=== PATIENT | male | born 1950 | race Caucasian/White ===

== ENCOUNTER 2021-04-28 07:59 | Observation (INO) | payer MEDICARE, BC ==
[~2021-04-28] VITALS: Ht 188 cm; Wt 119.7 kg
[~2021-04-28 07:59] MED LIST: ASPI-845 PO; CARV-49 PO; ENAL10TA19 PO; MULT-342 PO
[2021-04-28 09:07] LABS: BASOPHILS % (AUTO) 1.2 % (0-1); EOSINOPHILS # (AUTO) 0.2 X10'3 (0-0.9); EOSINOPHILS % (AUTO) 6.1 % (0-6); HEMOGLOBIN 9.2 g/dl (14.0-17.9); LYMPHOCYTES # (AUTO) 0.8 X10'3 (1.1-4.8); LYMPHOCYTES % (AUTO) 27.7 % (21-51); MEAN CORPUSCULAR HEMOGLOBIN 32.7 PG (27.0-31.0); MEAN CORPUSCULAR HGB CONC 34.2 g/dL (33.0-36.5); MEAN CORPUSCULAR VOLUME 95.6 FL (78-98); MEAN PLATELET VOLUME 8.9 FL (7.4-10.4); MONOCYTES # (AUTO) 0.3 X10'3 (0-0.9); MONOCYTES % (AUTO) 9.7 % (2-12); NEUTROPHILS # (AUTO) 1.6 X10'3 (1.8-7.7); NEUTROPHILS % (AUTO) 55.3 % (42-75); PLATELET COUNT 109 X10'3 (140-440); RED BLOOD COUNT 2.82 X10'6 (4.70-6.10); RED CELL DISTRIBUTION WIDTH 13.3 % (11.5-14.5); WHITE BLOOD COUNT 2.8 X10'3 (4.5-11.0)
[2021-04-28 09:20] LABS: ALANINE AMINOTRANSFERASE 31 U/L (12-78); ALBUMIN 3.5 G/DL (3.4-5.0); ALBUMIN/GLOBULIN RATIO 1.1 (1.1-1.5); ALKALINE PHOSPHATASE 51 IU/L (46-116); ANION GAP 11 (8-16); ASPARTATE AMINO TRANSFERASE 18 U/L (10-37); BILIRUBIN,TOTAL 0.8 MG/DL (0.1-1.0); BLOOD UREA NITROGEN 29 MG/DL (7-18); BUN/CREATININE RATIO 29.6 (5.4-32.0); CALCIUM 8.4 MG/DL (8.5-10.1); CHLORIDE 109 MMOL/L (99-107); CREATININE 0.98 MG/DL (0.60-1.10); GLUCOSE 101 MG/DL (70-104); POTASSIUM 3.5 MMOL/L (3.5-5.1); SODIUM 144 MMOL/L (135-145); TOTAL CARBON DIOXIDE 24.4 MMOL/L (24-32); TOTAL PROTEIN 6.8 G/DL (6.4-8.2); eGFR 75 ML/MIN
[2021-04-28 10:00] LABS: TOTAL CELLS COUNTED 100
[2021-04-28 10:01] LABS: PLATELET ESTIMATE DECREASED
[2021-04-28] MEDS ORDERED: ondansetron/PF 4mg/2ml inj IV PRN (12:50)
[2021-04-28] MEDS ORDERED: magnesium hydroxide 30ml (MOM) UD suspension PO PRN (12:50)
[2021-04-28] MEDS ORDERED: acetaminophen 325mg tablet PO PRN (12:50)
[2021-04-28] MEDS ORDERED: morphine 2 MG/ML inj. syringe IV PRN ×2 (12:50)
[2021-04-28] MEDS: normal saline 1000ml 1,000 ML IV SCH ×2 (12:50→23:18)
[2021-04-28] MEDS ORDERED: mag hydrox/Alum hydrox/simeth 30ml oral suspension PO PRN (12:50)
[2021-04-28] MEDS ORDERED: CARV6.253 PO (12:52)
[2021-04-28] MEDS ORDERED: ATOR20TA66 PO (12:52)
[2021-04-28] MEDS ORDERED: HYDR25TA4 PO (12:52)
[2021-04-28] MEDS ORDERED: ENAL20TA77 PO (12:52)
[2021-04-28] MEDS ORDERED: ASCO-10 PO (12:59)
[2021-04-28] MEDS ORDERED: ASPI-845 PO (12:59)
[2021-04-28] MEDS ORDERED: LACT1CAP75 PO (12:59)
[2021-04-28] MEDS ORDERED: MULT-342 PO (12:59)
--- NOTE | 2021-04-28 14:21 | NUR ---
PRACTICE OR STUDENT TEACHER AT BEDSIDE.
--- NOTE | 2021-04-28 15:59 | NUR ---
PATIENT PLACED ON HOSPITAL BED AT THIS TIME FOR COMFORT, AMBULATED TO BATHROOM WITH STANDBY ASSISTANCE, SAFELY RETURNED TO BED.
--- NOTE | 2021-04-28 19:30 | NUR ---
ANGIO GRAM AT 1400 04/[address] VERA
[2021-04-28 19:40] VITALS: BP 134/76
--- NOTE | 2021-04-28 20:00 | NUR ---
Patient in room PCU 3018. I have received report from TOBIN Colon and had the opportunity to ask questions and assume patient care.
[2021-04-28] MEDS: carvedilol 6.25mg tablet PO SCH (20:32)
[2021-04-28] MEDS: heparin, porcine 5000 units/ml vial SQ SCH (20:32)
[2021-04-28 22:00] VITALS: BP 127/75
[2021-04-29] VITALS (14 sets, daily range): BP systolic 107–150; BP diastolic 69–91
[2021-04-29] MEDS ORDERED: normal saline 1000ml 1,000 ML IV SCH ×2 (05:00→15:05)
--- NOTE | 2021-04-29 06:14 | NUR ---
Problems reprioritized. Patient report given, questions answered & plan of care reviewed with TOBIN Dickinson.
--- NOTE | 2021-04-29 06:29 | NUR ---
Patient in room PCU 3018. I have received report from TOBIN Dumont and had the opportunity to ask questions and assume patient care.
[2021-04-29 06:37] LABS: PARTIAL THROMBOPLASTIN TIME 27 SECONDS (22-32)
[2021-04-29 06:39] LABS: BASOPHILS % (AUTO) 1.1 % (0-1); EOSINOPHILS # (AUTO) 0.2 X10'3 (0-0.9); EOSINOPHILS % (AUTO) 5.2 % (0-6); HEMATOCRIT 37.4 % (42.0-52.0); HEMOGLOBIN 12.9 g/dl (14.0-17.9); LYMPHOCYTES # (AUTO) 1.1 X10'3 (1.1-4.8); LYMPHOCYTES % (AUTO) 26.1 % (21-51); MEAN CORPUSCULAR HEMOGLOBIN 32.5 PG (27.0-31.0); MEAN CORPUSCULAR HGB CONC 34.6 g/dL (33.0-36.5); MEAN PLATELET VOLUME 8.8 FL (7.4-10.4); MONOCYTES # (AUTO) 0.4 X10'3 (0-0.9); MONOCYTES % (AUTO) 10.4 % (2-12); NEUTROPHILS # (AUTO) 2.3 X10'3 (1.8-7.7); NEUTROPHILS % (AUTO) 57.2 % (42-75); PLATELET COUNT 152 X10'3 (140-440); RED BLOOD COUNT 3.98 X10'6 (4.70-6.10); RED CELL DISTRIBUTION WIDTH 13.5 % (11.5-14.5); WHITE BLOOD COUNT 4.1 X10'3 (4.5-11.0)
[2021-04-29 06:42] LABS: ALBUMIN 3.4 G/DL (3.4-5.0); ANION GAP 7 (8-16); BLOOD UREA NITROGEN 23 MG/DL (7-18); BUN/CREATININE RATIO 27.4 (5.4-32.0); CALCIUM 8.3 MG/DL (8.5-10.1); CHLORIDE 106 MMOL/L (99-107); CREATININE 0.84 MG/DL (0.60-1.10); GLUCOSE 88 MG/DL (70-104); POTASSIUM 4.2 MMOL/L (3.5-5.1); SODIUM 141 MMOL/L (135-145); eGFR 90 ML/MIN
[2021-04-29] MEDS: heparin, porcine 5000 units/ml vial SQ SCH (08:00)
[2021-04-29] MEDS: HYDROchlorothiazide 25mg tablet PO SCH (08:13)
[2021-04-29] MEDS: lactobacillus rhamnosus 10,000 MMU CELLS/CAPSULE PO SCH (08:13)
[2021-04-29] MEDS: carvedilol 6.25mg tablet PO SCH ×2 (08:13→20:53)
[2021-04-29] MEDS: atorvastatin 20mg tablet PO SCH (08:13)
[2021-04-29] MEDS: multivitamins, therapeutics tablet PO SCH (08:13)
[2021-04-29] MEDS: lisinopril 20mg tablet PO SCH (08:14)
[2021-04-29] MEDS: ascorbic acid 500mg tablet PO SCH (08:15)
[2021-04-29] MEDS: normal saline 1000ml 1,000 ML IV SCH ×2 (08:15→18:50)
[2021-04-29 12:28] LABS: EOSINOPHILS # (AUTO) 0.2 X10'3 (0-0.9); EOSINOPHILS % (AUTO) 4.1 % (0-6); HEMATOCRIT 40.9 % (42.0-52.0); HEMOGLOBIN 13.6 g/dl (14.0-17.9); LYMPHOCYTES # (AUTO) 0.9 X10'3 (1.1-4.8); MEAN CORPUSCULAR HEMOGLOBIN 31.9 PG (27.0-31.0); MEAN CORPUSCULAR HGB CONC 33.4 g/dL (33.0-36.5); MEAN CORPUSCULAR VOLUME 95.5 FL (78-98); MONOCYTES # (AUTO) 0.4 X10'3 (0-0.9); MONOCYTES % (AUTO) 9.4 % (2-12); NEUTROPHILS # (AUTO) 2.5 X10'3 (1.8-7.7); NEUTROPHILS % (AUTO) 63.5 % (42-75); PLATELET COUNT 164 X10'3 (140-440); RED BLOOD COUNT 4.28 X10'6 (4.70-6.10); RED CELL DISTRIBUTION WIDTH 13.8 % (11.5-14.5); WHITE BLOOD COUNT 3.9 X10'3 (4.5-11.0)
[2021-04-29] MEDS ORDERED: midazolam 1 mg/ML 2ml injection ONE (13:37)
[2021-04-29] MEDS ORDERED: LIDOcaine 1% (10mg/ml)w/preservative injection 20ml MDV ONE (13:38)
[2021-04-29] MEDS ORDERED: fentaNYL/PF 50MCG/1 ML 2ML syringe ONE (13:38)
[2021-04-29] MEDS ORDERED: iohexol 350MG/ML 100ml bottle IV ONE (13:38)
[2021-04-29] MEDS ORDERED: iohexol 350 MG/ML 50ML vial IV ONE ×2 (13:38→14:15)
[2021-04-29] MEDS ORDERED: proCHLORperazine 10 MG/2 ml inj IV PRN (15:05)
[2021-04-29] MEDS ORDERED: HYDROcodone/acetaminophen 5mg/325mg tablet PO PRN (15:05)
[2021-04-29] MEDS ORDERED: OXAZEpam 15mg capsule PO PRN (15:05)
[2021-04-29] MEDS ORDERED: ondansetron/PF 4mg/2ml inj IV PRN (15:05)
[2021-04-29] MEDS ORDERED: HYDROcodone/acetaminophen 10/325mg tab PO PRN (15:05)
--- NOTE | 2021-04-29 18:19 | NUR ---
Problems reprioritized. Patient report given, questions answered & plan of care reviewed with TOBIN Ignacio. Pt laying flat after angiogram, informed the nurse pt is to lay flat until 2044. Resting comfortably. Family at bedside. All pt needs met at this time.
--- NOTE | 2021-04-29 18:38 | NUR ---
Patient in room PCU 3018. I have received report from Teena URDD and had the opportunity to ask questions and assume patient care.
[2021-04-30 02:00] VITALS: BP 100/52
[2021-04-30 02:30] VITALS: BP 107/57
--- NOTE | 2021-04-30 06:10 | NUR ---
Patient in room PCU 3018. I have received report from TOBIN Ignacio and had the opportunity to ask questions and assume patient care.
[2021-04-30 06:30] VITALS: BP 101/72
--- NOTE | 2021-04-30 06:38 | NUR ---
Problems reprioritized. Patient report given, questions answered & plan of care reviewed with abel pearson.
[2021-04-30 07:00] VITALS: BP 107/76
[2021-04-30 07:02] LABS: EOSINOPHILS # (AUTO) 0.2 X10'3 (0-0.9); EOSINOPHILS % (AUTO) 4.1 % (0-6); HEMATOCRIT 38.1 % (42.0-52.0); HEMOGLOBIN 12.9 g/dl (14.0-17.9); LYMPHOCYTES # (AUTO) 1.3 X10'3 (1.1-4.8); LYMPHOCYTES % (AUTO) 26.4 % (21-51); MEAN CORPUSCULAR HEMOGLOBIN 32.2 PG (27.0-31.0); MEAN CORPUSCULAR HGB CONC 33.8 g/dL (33.0-36.5); MEAN CORPUSCULAR VOLUME 95.4 FL (78-98); MONOCYTES # (AUTO) 0.6 X10'3 (0-0.9); MONOCYTES % (AUTO) 11.5 % (2-12); NEUTROPHILS # (AUTO) 2.8 X10'3 (1.8-7.7); PLATELET COUNT 151 X10'3 (140-440); RED BLOOD COUNT 3.99 X10'6 (4.70-6.10); RED CELL DISTRIBUTION WIDTH 13.4 % (11.5-14.5); WHITE BLOOD COUNT 4.8 X10'3 (4.5-11.0)
[2021-04-30 07:18] LABS: ALBUMIN 3.4 G/DL (3.4-5.0); ANION GAP 9 (8-16); BLOOD UREA NITROGEN 21 MG/DL (7-18); BUN/CREATININE RATIO 23.1 (5.4-32.0); CALCIUM 8.6 MG/DL (8.5-10.1); CHLORIDE 104 MMOL/L (99-107); CREATININE 0.91 MG/DL (0.60-1.10); GLUCOSE 83 MG/DL (70-104); POTASSIUM 4.1 MMOL/L (3.5-5.1); SODIUM 141 MMOL/L (135-145); TOTAL CARBON DIOXIDE 28.4 MMOL/L (24-32); eGFR 82 ML/MIN
[2021-04-30] MEDS ORDERED: aspirin 325mg tablet, delayed-release (Ecotrin) PO SCH (08:00)
[2021-04-30] MEDS: carvedilol 6.25mg tablet PO SCH (08:04)
[2021-04-30] MEDS: atorvastatin 20mg tablet PO SCH (08:04)
[2021-04-30] MEDS: multivitamins, therapeutics tablet PO SCH (08:05)
[2021-04-30] MEDS: lactobacillus rhamnosus 10,000 MMU CELLS/CAPSULE PO SCH (08:05)
[2021-04-30] MEDS: ascorbic acid 500mg tablet PO SCH (08:05)
[2021-04-30 11:00] VITALS: BP 129/72
[2021-04-30 11:37] VITALS: BP_SYST 129
[2021-04-30] MEDS: HYDROchlorothiazide 25mg tablet PO SCH (11:37)
[2021-04-30] MEDS: lisinopril 20mg tablet PO SCH (11:37)
--- NOTE | 2021-04-30 13:45 | NUR ---
Dr Aragon called and wanted me to call MRI and ask why cervical has resulted but thoracic has not. Paged Mahesh PAGER ID: [phone] MESSAGE: Sudheer Ku [phone] tissue technician is looking into it and will get back to me. Thanks Teena :)
--- NOTE | 2021-04-30 15:07 | NUR ---
Patient stable for discharge per MD orders. All instructions were given, questions answered appropriately. All belongings were collected and sent with pt and . Instructed pt to follow up with PCP within one week and Dr Lunsford within 2 weeks. PIV discontinued, cannula intact. Tele discontinued, telephone solicitor notified. Wheeled pt to lobby and assisted into 's car.
== END 2021-04-30 15:10 | disposition home or self-care (01) ==
LOC: ER 07:59 → ED HOLD 12:46 → PCU 3S 19:34
PROVIDERS: ADMIT Family Medicine; ATTEND Family Medicine
DX: I25.10 Atherosclerotic heart disease of native coronary artery without angina pectoris (principal); D61.818 Other pancytopenia; Z20.822 Contact with and (suspected) exposure to COVID-19; R07.89 Other chest pain; E78.5 Hyperlipidemia, unspecified; I11.0 Hypertensive heart disease with heart failure; I50.9 Heart failure, unspecified; I48.91 Unspecified atrial fibrillation; R53.1 Weakness; Z88.2 Allergy status to sulfonamides; M54.12 Radiculopathy, cervical region; R20.2 Paresthesia of skin
CPT/HCPCS: 36415; 71045; 72141; 72146; 80048; 80053; 83880; 84484; 85007; 85025; 85610; 85730; 87635; 93306; 93458; 93567; 96360; 96361; 96372; 99285; C1760; C1769; G0378; J1644; J2001; J2250; J3010; J7030; Q9967; 99152; 99153; A4620; A6258

== ENCOUNTER 2023-11-16 09:33 | Emergency (ER) | payer MEDICARE, BC ==
[~2023-11-16] VITALS: Ht 185.4 cm; Wt 122.0 kg
[~2023-11-16 09:33] MED LIST changes: +ASCO-10 PO; +ATOR20TA66 PO; -CARV-49 PO; +CARV6.253 PO; -ENAL10TA19 PO; +ENAL20TA77 PO; +HYDR25TA4 PO; +LACT1CAP75 PO
[2023-11-16 09:39] VITALS: TEMP 98.7
[2023-11-16] MEDS ORDERED: TOBR5DRO7 (09:58)
[2023-11-16] MEDS ORDERED: TADA5TAB2 PO (09:59)
[2023-11-16 10:01] LABS: EOSINOPHILS # (AUTO) 0.3 X10'3 (0-0.9); EOSINOPHILS % (AUTO) 7.5 % (0-6); HEMATOCRIT 37.2 % (42.0-52.0); HEMOGLOBIN 12.6 g/dl (14.0-17.9); LYMPHOCYTES # (AUTO) 0.9 X10'3 (1.1-4.8); LYMPHOCYTES % (AUTO) 21.9 % (21-51); MEAN CORPUSCULAR HEMOGLOBIN 32.2 PG (27.0-31.0); MEAN CORPUSCULAR HGB CONC 33.9 g/dL (33.0-36.5); MEAN PLATELET VOLUME 8.9 FL (7.4-10.4); MONOCYTES # (AUTO) 0.4 X10'3 (0-0.9); MONOCYTES % (AUTO) 10.2 % (2-12); NEUTROPHILS # (AUTO) 2.3 X10'3 (1.8-7.7); NEUTROPHILS % (AUTO) 59.4 % (42-75); PLATELET COUNT 149 X10'3 (140-440); RED BLOOD COUNT 3.91 X10'6 (4.70-6.10); RED CELL DISTRIBUTION WIDTH 13.2 % (11.5-14.5); WHITE BLOOD COUNT 3.9 X10'3 (4.5-11.0)
[2023-11-16] MEDS ORDERED: normal saline 1000ML IV soln IVB ONE (10:15)
[2023-11-16 11:27] LABS: ALBUMIN 3.7 G/DL (3.4-5.0); ANION GAP 8 (8-16); BLOOD UREA NITROGEN 42 MG/DL (7-18); BUN/CREATININE RATIO 30.9 (10.0-20.0); CALCIUM 8.8 MG/DL (8.5-10.1); CHLORIDE 105 MMOL/L (99-107); CREATININE 1.36 MG/DL (0.60-1.10); GLUCOSE 121 MG/DL (70-104); POTASSIUM 3.8 MMOL/L (3.5-5.1); PRO BRAIN NATRIURETIC PEPTIDE 107 PG/ML (0-125); SODIUM 140 MMOL/L (135-145); TOTAL CARBON DIOXIDE 27.3 MMOL/L (24-32); eCRCL 54 ML/MIN; eGFR 51 ML/MIN
[2023-11-16 12:31] LABS: BILIRUBIN,URINE NEGATIVE (Neg); CLARITY,URINE CLEAR (Clear); COLOR,URINE YELLOW (Yellow); GLUCOSE, URINE NEGATIVE (Neg); KETONES,URINE NEGATIVE (Neg); LEUKOCYTE ESTERASE ,URINE NEGATIVE (Neg); NITRITES, URINE NEGATIVE (Neg); OCCULT BLOOD,URINE NEGATIVE (Neg); PH,URINE 5.5 (4.8-8.0); PROTEIN,URINE NEGATIVE (Neg); UROBILINOGEN,URINE 0.2 E.U/dL (0.2-1.0)
[2023-11-16 12:36] LABS: UA COLLECTION TYPE CLN CATCH MIDSTREAM
[2023-11-16 13:51] VITALS: BP 109/69; PULSE 59; RESP 14; O2SAT 99
== END 2023-11-16 13:53 | disposition home or self-care (01) ==
LOC: ER 09:33
DX: E86.0 Dehydration (principal); R55 Syncope and collapse; I50.9 Heart failure, unspecified; Z88.2 Allergy status to sulfonamides; Z79.899 Other long term (current) drug therapy; Z79.82 Long term (current) use of aspirin
CPT/HCPCS: 36415; 71045; 80048; 81003; 83880; 84145; 84484; 85025; 93005; 99285; J7030